=== PATIENT | female | born 2000 | race Caucasian/White ===

== ENCOUNTER 2025-04-01 05:33 | Inpatient (IN) | payer OTHER ==
[2025-04-01 06:41] VITALS: BMI 27.3
[2025-04-01] MEDS ORDERED: Diphenoxylate HCl/Atropine Tablet PO PRN (07:46)
[2025-04-01] MEDS ORDERED: Lidocaine 1% (PF) 30 ML VIAL SC PRN (07:46)
[2025-04-01] MEDS ORDERED: Carboprost 250 MCG/ML AMP IM PRN (07:46)
[2025-04-01] MEDS ORDERED: Ondansetron PF 4 MG/2 ML Vial IVP PRN ×3 (07:46→15:44)
[2025-04-01] MEDS ORDERED: hydrALAZINE 20 MG/ML VIAL SLOW IVP PRN ×2 (07:46→15:44)
[2025-04-01] MEDS ORDERED: HYDROcodone/Acetaminophen 5/325 mg Tablet PO PRN ×3 (07:46→15:44)
[2025-04-01 08:00] LABS: Hematocrit 38.5 % (34.9-44.5); Hemoglobin 13.2 g/dL (12.0-15.5); Mean Corpuscular Hemoglobin 30.8 pg (27.0-33.0); Mean Corpuscular Volume 90.0 fL (81.6-98.3); Platelet Count 318 10x3/uL (150-450); Red Blood Cell (RBC) Count 4.28 10x6/uL (3.90-5.03); White Blood Cell (WBC) Count 14.06 10x3/uL (3.5-10.5)
[2025-04-01] MEDS ORDERED: Bupivacaine/Epinephrine 0.25% 30 ML VIAL ONE (08:00)
[2025-04-01] MEDS ORDERED: Bupivacaine HCl 0.5%/Epinephrine 1:200,000/PF 30 ml Vial ONE (08:00)
[2025-04-01] MEDS ORDERED: Oxytocin 30 units/NS 500 ML 500 ML IV SCH ×2 (08:00)
[2025-04-01 08:24] LABS: Chloride 109 mmol/L (98-107); Potassium 4.4 mmol/L (3.5-5.1); Sodium 136 mmol/L (136-145)
[2025-04-01 08:25] LABS: ALT (SGPT) 19 U/L (Less than 34); AST (SGOT) 32 U/L (11-34); Albumin 2.9 g/dL (3.1-4.5); Alkaline Phosphatase 106 U/L (40-110); Anion Gap 16 mmol/L (10-20); BUN (Urea Nitrogen) 11 mg/dL (7.0-18.7); Bilirubin, Total 0.2 mg/dL (0.3-1.2); Calc. Creatinine Clearance 156 mL/min (70-130); Calcium 8.3 mg/dL (7.8-10.44); Carbon Dioxide 15 mmol/L (22-29); Globulin 2.6 g/dL (2.4-3.5); Glucose 84 mg/dL (70-105)
[2025-04-01 08:38] LABS: Syphilis Antibody Index 0.02 S/CO (<1.00 Non-Reactive)
[2025-04-01 08:39] LABS: Hep B Surf Ag - L&D Non-Reactive S/CO (NonReactive)
[2025-04-01] MEDS: fentaNYL/Ropivacaine Epidural 100 ML ONE (09:34)
[2025-04-01] MEDS: Acetaminophen 500 MG TAB PO PRN (09:38)
[2025-04-01] MEDS ORDERED: Acetaminophen 325 MG TAB PO PRN (09:56)
[2025-04-01] MEDS ORDERED: diphenhydrAMINE 50 MG/ML VIAL IVP PRN (09:56)
[2025-04-01] MEDS ORDERED: Communication Order-Pharmacy FS SCH (10:00)
[2025-04-01] MEDS ORDERED: fentaNYL 2 mcg/Ropivacaine 0.2% Epidural 100 ML CADD EPIDURAL SCH (10:00)
[2025-04-01] MEDS: Ibuprofen 800 MG TAB PO PRN (15:32)
[2025-04-01] MEDS ORDERED: Milk Of Magnesia 30 ML UDCUP PO PRN (15:44)
[2025-04-01] MEDS ORDERED: Bisacodyl 10 MG SUPP PR PRN (15:44)
[2025-04-01] MEDS ORDERED: Boostrix 0.5 ML (Tdap) VIAL (>/=7 yrs of age) IM ONE (15:44)
[2025-04-01] MEDS ORDERED: Preparation H Ointment 28 GM TUBE PR PRN (15:44)
[2025-04-01] MEDS ORDERED: Lanolin Ointment 7 GM TUBE TOP PRN (15:44)
[2025-04-01] MEDS ORDERED: diphenhydrAMINE 25 MG CAP PO PRN (15:44)
[2025-04-01] MEDS: Ferrous Sulfate 325 MG TAB PO SCH (20:15)
[2025-04-01] MEDS: Ibuprofen 800 MG TAB PO SCH (20:34)
[2025-04-02 16:17] VITALS: BP 136/85; TEMP 97.9
== END 2025-04-02 16:35 | disposition home or self-care (01) | DRG 807 ==
LOC: CSHLD 05:33 → CSHPP 16:20
PROVIDERS: ADMIT Student in an Organized Health Care Education/Training Program; ATTEND Student in an Organized Health Care Education/Training Program
PROC: 10E0XZZ Delivery of Products of Conception, External Approach (ICD-10-PCS; principal; 2025-04-01)
DX: O13.4 Gestational [pregnancy-induced] hypertension without significant proteinuria, complicating childbirth (principal); Z37.0 Single live birth; Z88.0 Allergy status to penicillin; O69.81X0 Labor and delivery complicated by cord around neck, without compression, not applicable or unspecified; Z3A.38 38 weeks gestation of pregnancy
CPT/HCPCS: 51702; 80053; 85027; 86780; 86850; 86900; 86901; 87340